=== PATIENT | male | born 1930 | race Caucasian/White ===

== ENCOUNTER → 2020-05-12 | Outpatient (CLI) | payer OTHER ==
[~2020-05-12] MED LIST: ALLOPURINOL 10100 M1; ASPIRIN EC81 M1 PO; MICARDIS HCT 81 EAC1 PO; NORVASC10 MG PO; PLAVIX 75 MG TA75 M1 PO; TOPROL XL50 MG PO; ZETIA10 MG PO
== END ==
LOC: LAB 11:32
PROVIDERS: ATTEND Ophthalmology
DX: Z01.812 Encounter for preprocedural laboratory examination (principal); Z20.828 Contact with and (suspected) exposure to other viral communicable diseases

== ENCOUNTER 2020-05-18 06:13 | Day surgery (SDC) | payer OTHER ==
[~2020-05-18] VITALS: Ht 172.7 cm; Wt 86.2 kg
[~2020-05-18 06:13] MED LIST changes: +ASA81BEC PO; +BUSPIRONE HCL5 MG PO; +CHLORTHALIDONE25 MG PO; +CRESTOR5 MG PO; +ELIQUIS5 MG PO; +PRALUENT P75 MG/1 ML SUBQ; +PROSCAR 5MG TABL5 M1 PO; +PROTONIX40 M2 PO; +VALSARTAN320 MG PO; +VENTOLIN HFA 1818 GM INH; +VITAMIN D350 MC3 PO; +ZYLOPRIM300 MG PO
[2020-05-18 07:00] VITALS: BP 189/84
--- NOTE | 2020-05-19 17:06 | PATH ---
[facility] [place] [address] PATHOLOGY RPT PROCEDURE Name: MIGUELINA STRICKLAND Marysol Room #: DEP [facility]#: [id number] Admission: 05/18/20 Date of : [birth year] Discharge: 05/18/20 Report #: [id number] Path Case #: [id number] [facility] Accession Number: [id number] . 01 Material submitted: . PART A: lid - LEFT LOWER LID BCC - FS. Modifiers: left, lower PART B: lid - ADDITIONAL INFERIOR MARGIN, LEFT LOWER LID - FS. Modifiers: left, lower, inferior . 01 Clinical history: . BASAL CELL CARCINOMA . 02 Frozen section diagnosis: . FROZEN SECTION DIAGNOSES: (Verna Henderson MD) . FSA1, Left lower lid basal cell, excision: - INFERIOR MARGIN POSITIVE, LIKELY NEW FOCUS PRESENT AT THE LATERAL TIP. . FSB1, Additional inferior margin left lower lid, excision: - No definite invasive carcinoma identified at the new margin. . These findings are discussed with Dr. Burt Anguiano in OR6 and a written report is placed in the patient's chart. . . FROZEN SECTION GROSS DESCRIPTION: A. Specimen is received fresh from the OR labeled with the patient's name, and "left lower lid basal cell carcinoma", consists of a tiny ellipse of skin measuring 1.2 x 0.5 x 0.3 cm. The entire medial to lateral margin at the superior border is inked black, the lateral to inferior is inked blue, and the inferior to medial is inked green. At this point, the specimen is sectioned into four pieces and submitted for frozen section in entirety as FSA1, this is subsequently submitted for permanent sections as A1. . B. Specimen is received fresh from the OR labeled with the patient's name, and "additional inferior margin left lower lid", consists of a 2.1 cm oriented thin strip of skin. The medial end is inked green and the lateral end is inked blue. At this point, the specimen is submitted enface for frozen section in entirety as FSB1, this is subsequently submitted for permanent sections as B1. (IUV:quique; 05/18/2020) . Frozen section performed at [facility], [address] [place] [address]. IZV/QMS . 02 Diagnosis: [facility] [place] [address] PATHOLOGY RPT PROCEDURE Name: MIGUELINA STRICKLAND Room #: DEP [facility]#: [id number] Admission: 05/18/20 Date of : [birth year] Discharge: 05/18/20 Report #: [id number] Path Case #: [id number] A. Skin, left lower lid basal cell carcinoma, excision: - BASAL CELL CARCINOMA. - PRESENT AT INFERIOR MARGIN WELL THE LATERAL TIP. - Remainder margins free. . B. Skin, additional inferior margin left lower lid, re-excision: - Negative for invasive carcinoma on frozen section slides (please see comment). (IUV:pit 05/19/2020) P 05/19/2020 1406 Local . 02 Comment: Part B: The frozen section slides are free of malignancy. The permanent sections; however, show a tiny focus of invasive carcinoma at the center of the thin strip of skin compatible with the presence of invasive carcinoma at the old margin. The enface margin was submitted for frozen sections and the multiple levels examined at the time of the frozen section show no evidence of invasive carcinoma supporting the true inferior margin to be negative for malignancy. (IUV:pit 05/19/2020) . 02 Electronically signed: . Verna Henderson MD, Pathologist NPI- [id number] . 01 Gross description: . A. SEE FROZEN SECTION FOR GROSS DESCRIPTION. . B. SEE FROZEN SECTION FOR GROSS DESCRIPTION. /S 05/18/20202011 Local . 02 Pathologist provided ICD-10: C44.1192 . 02 CPT . 097417, 310263, 767317, 321678 Specimen Comment: A courtesy copy of this report has been sent to [phone] Specimen Comment: [phone] Specimen Comment: Report sent to / DR MCKEON Performed at: 01 [facility] [id number] [facility] [address], [place], [place] [id number] MD Viktor Feliciano MD Phone: [phone] Performed at: 02 [facility] [address] [place] [address] PATHOLOGY RPT PROCEDURE Name: MIGUELINA STRICKLAND Room #: DEP [facility] M.R.#: [id number] Admission: 05/18/20 Date of : [birth year] Discharge: 05/18/20 Report #: [id number] Path Case #: [id number] [address] [place], [place] [id number] MD Verna Henderson MD Phone: [phone]
--- NOTE | 2020-05-22 06:17 | O ---
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 POSTOPERATIVE DIAGNOSIS: Basal cell carcinoma of left lower lid and cheek. PROCEDURE: Excision of basal cell carcinoma of left lower lid and cheek with frozen section, control of margins and myocutaneous flap repair of defect. SURGEON: Burt Anguiano M.D. BROKER ASSOCIATE: None. ANESTHESIA: MAC. COMPLICATIONS: None. INDICATIONS FOR SURGERY: This pleasant 89-year-old gentleman has a biopsy proven basal cell carcinoma in his left lower lid that extends onto his cheek. He presents today for excision of this lesion with subsequent repair of that ensuing defect after frozen sections confirmed tumor extirpation. Informed consent was obtained to include but not limited to the potential risk for loss of vision, bleeding, infection, failure to improve the problem, the potential need for further surgery or treatment. DESCRIPTION OF PROCEDURE: The patient was taken to the operating room where 2% Xylocaine with epinephrine mixed with equal parts 0.75% Marcaine with Wydase was administered transcutaneously and transconjunctivally to the left lower lid, the left medial canthus, the left lateral canthus, the left cheek and the left infratemporal fossa. The patient was subsequently prepped and draped in the usual sterile fashion. A fine-tip skin marking pen was then utilized to outline the lesion including 2-3 mm of normal appearing tissue. The incisions were then made with a 15 blade and the deeper dissection accomplished with a Jessica scissor. Hemostasis was achieved in the field with diligent pinpoint monopolar [address] [address] OPERATIVE REPORT Name: EMMIGUELINA Marysol Room #: DEP [facility] M..#: [id number] Admission: 05/18/20 Attend Phys: Burt Anguiano MD Discharge: 05/18/20 Date of : [birth year] Report #: [id number] cautery. The specimen was then oriented on a drawing for the waiting pathologist. She snap froze the specimen and found that the inferior margin was still positive. An additional 3 mm strip of tissue was then taken across the entire inferior portion of the wound and oriented for her. Hemostasis was re-achieved. She snap froze that specimen and found that the margin now appeared to be clear. A relaxing incision extending the inferolateral portion of the excision was extended towards the ear lobe and the incision made. A myocutaneous flap was then developed undermining inferiorly and superiorly around the entire region. The flap was advanced and secured with multiple interrupted Vicryl sutures deep. A final closure in skin of 6-0 plain gut suture was used. The wounds were then cleaned and dressed with erythromycin ophthalmic ointment. The patient was subsequently transported to the recovery area having tolerated the procedure well with no anesthetic or operative complications being noted. <ELECTRONICALLY SIGNED> By: Burt Anguiano MD 05/22/2017 0840 Burt Anguiano MD /nt
== END 2020-05-18 09:00 | disposition home or self-care (01) ==
LOC: OR 06:13 → TBA 06:13 → OR 08:53
PROVIDERS: ATTEND Ophthalmology
DX: C44.1192 Basal cell carcinoma of skin of left lower eyelid, including canthus (principal); I10 Essential (primary) hypertension; I25.10 Atherosclerotic heart disease of native coronary artery without angina pectoris; E78.00 Pure hypercholesterolemia, unspecified; I25.2 Old myocardial infarction; N40.0 Benign prostatic hyperplasia without lower urinary tract symptoms; I48.91 Unspecified atrial fibrillation; M10.9 Gout, unspecified; K21.9 Gastro-esophageal reflux disease without esophagitis; F41.9 Anxiety disorder, unspecified; Z85.828 Personal history of other malignant neoplasm of skin; Z98.890 Other specified postprocedural states; Z79.899 Other long term (current) drug therapy
CPT/HCPCS: 50010; 50101; 50386; 50398; 51636; 56528; 56531; 62110; 62850; 70005

== ENCOUNTER 2020-05-22 08:03 | Day surgery (SDC) | payer OTHER ==
[~2020-05-22] VITALS: Ht 172.7 cm; Wt 86.2 kg
--- NOTE | ~2020-05-22 | O ---
[facility] [place] [address] OPERATIVE REPORT Name: MIGUELINA STRICKLAND Room #: 150-4 [facility]..#: [id number] Admission: 05/22/20 Attend Phys: Burt Anguiano MD Discharge: Date of : [birth year] Report #: [id number] THIS REPORT FOR: cc: Marcela Humphreys MD, Srilatha MD White, William L. MD ~ CC: Murali Anguiano DATE OF SERVICE: 05/22/2020 PREOPERATIVE DIAGNOSIS: Bleeding from left lower lid following surgery, 05/18. POSTOPERATIVE DIAGNOSIS: Bleeding from left lower lid following surgery, 05/18. PROCEDURE: Return to the operating room for control of bleeding. SURGEON: Burt Anguiano MD. ELEMENT[employer] TEACHER: None. ANESTHESIA: MAC. COMPLICATIONS: None. INDICATIONS FOR SURGERY: This pleasant 89-year-old gentleman underwent resection of a basal cell carcinoma, 05/18, last week. He had his defect reconstructed with a myocutaneous advancement flap. He was doing well until Friday morning after his Eliquis had been restarted when he started to ooze from his wound. This caused him to pick at his wound as per history from his son. He has bled essentially continuously since then with a trickle of blood coming from the area, not a profound amount inflow, but continuously. He had the wound dressed earlier this morning and he soaked through that dressing to continue to bleed. He has no evidence of any ocular compromise, but also showing no evidence of hemostasis being obtained. He last took his Eliquis yesterday morning. He did not take it last night nor this morning. Informed consent was obtained to include but not limited to the potential risk for loss of vision, bleeding, infection, and the potential need for other treatment or surgery. DESCRIPTION OF PROCEDURE: The patient was taken to the operating room where 2% Xylocaine with epinephrine mixed with equal parts 0.75% Marcaine with Wydase was administered transcutaneously to the left lower lid, the left cheek and the left [facility] [address] [place] [address] OPERATIVE REPORT Name: MIGUELINA STRICKLAND Room #: 150-4 [facility].#: [id number] Admission: 05/22/20 Attend Phys: Burt Anguiano MD Discharge: Date of : [birth year] Report #: [id number] medial canthus after the previously blood-soaked dressing was removed. He was then prepped and draped in the usual sterile fashion. Surprisingly, with his blood pressure down into a normal range and him not being agitated, he had very little bleeding before we opened the wound up. I opened the wound medially and never found any specific source of obvious flow, just multiple small areas of capillary ooze. Diligent monopolar cautery was used and the wound was left for several minutes to make sure that all points of potential bleeding were controlled. The flap was then resecured in the same manner was last week with a final skin closure of 6-0 plain gut suture. The patient was then transported to the recovery area having tolerated the procedure well with no obvious complications to this point. By: 0930 1107 Burt Anguiano MD /nt
[2020-05-22 09:10] VITALS: BP 146/80
== END 2020-05-22 10:10 | disposition home or self-care (01) ==
LOC: OR 08:03 → TBA 08:42 → OR 10:10
PROVIDERS: ATTEND Ophthalmology
DX: H59.322 Postprocedural hemorrhage of left eye and adnexa following other procedure (principal); I10 Essential (primary) hypertension; I25.10 Atherosclerotic heart disease of native coronary artery without angina pectoris; E78.00 Pure hypercholesterolemia, unspecified; I48.91 Unspecified atrial fibrillation; I25.2 Old myocardial infarction; M10.9 Gout, unspecified; K21.9 Gastro-esophageal reflux disease without esophagitis; Z98.890 Other specified postprocedural states; Z79.899 Other long term (current) drug therapy; Z86.73 Personal history of transient ischemic attack (TIA), and cerebral infarction without residual deficits; Z85.828 Personal history of other malignant neoplasm of skin
CPT/HCPCS: 50010; 50101; 50386; 50398; 51636; 56531; 62110; 62850; 70005